=== PATIENT | male | born 1985 | race Caucasian/White ===

== ENCOUNTER 2016-11-27 08:36 | Emergency (ER) | payer OTHER ==
[2016-11-27 08:44] VITALS: BP 138/90
[2016-11-27] MEDS ORDERED: DIAZEPAM INJ 10 MG/2 ML DISP.SYRIN IM ONE (09:19)
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
== END 2016-11-27 09:30 | disposition home or self-care (01) ==
LOC: ER 08:36
DX: M62.830 Muscle spasm of back (principal); M54.5 Low back pain; F17.210 Nicotine dependence, cigarettes, uncomplicated; Z88.8 Allergy status to other drugs, medicaments and biological substances; Z88.3 Allergy status to other anti-infective agents
CPT/HCPCS: 99283; 96372; J3360